=== PATIENT | female | born 2000 | race Caucasian/White ===

== ENCOUNTER 2021-07-17 08:00 | Outpatient (CLI) | payer OTHER ==
[2021-07-17 16:03] LABS: BILIRUBIN,URINE NEGATIVE (NEGATIVE); GLUCOSE, URINE (UA) NEGATIVE (NEGATIVE); KETONES,URINE (UA) NEGATIVE (NEGATIVE); LEUKOCYTE ESTERASE, URINE NEGATIVE (NEGATIVE); NITRITE,URINE NEGATIVE (NEGATIVE); OCCULT BLOOD,URINE MODERATE (NEGATIVE); PH,URINE 7.5 PH (5.0-7.5); PROTEIN,URINE NEGATIVE (NEGATIVE); UROBILINOGEN,URINE 0.2 (NORMAL) E.U./dL (NORMAL)
[2021-07-17 16:08] LABS: CLARITY,URINE HAZY (CLEAR)
[2021-07-17 16:16] LABS: BACTERIA,URINE None Seen /HPF (None Seen); RBC,URINE 0-5 /HPF (0-5); SQUAMOUS EPITHELIAL CELL,UR FEW Squamous (<= Few); WBC,URINE 0-3 /HPF (0-5)
== END 2021-07-17 23:59 ==
LOC: LAB 08:00
PROVIDERS: ATTEND Nurse Practitioner Obstetrics & Gynecology
DX: Z32.01 Encounter for pregnancy test, result positive (principal)
CPT/HCPCS: 81001; 87086

== ENCOUNTER 2021-07-23 08:09 | Emergency (ER) | payer OTHER ==
--- NOTE | 2021-07-23 08:30 | ED Physician Documentation ---
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 She has now developed some pelvic cramping and bleeding. She has gone in with this to see the VETERINARY TECHNOLOGY INSTRUCTOR doctor and had a positive test confirmed. Review of Systems Constitutional: denies: Fever Ears: denies: Ear pain Nose: denies: Congestion Throat: denies: Sore throat Cardiac: denies: Chest pain / pressure Respiratory: denies: Dyspnea, Cough GI: reports: Abdominal Pain. denies: Nausea, Vomiting, Constipation, Diarrhea : reports: Vaginal bleeding. denies: Dysuria, Frequency Skin: denies: Rash Musculoskeletal: denies: Neck pain, Back pain, Extremity pain Neurologic: denies: Generalized weakness, Focal weakness, Numbness PD PAST MEDICAL HISTORY - Present Medications Home Medications: Ambulatory Orders Medication Instructions Recorded Confirmed Pnv No.95/Ferrous Fum/Folic AC 1 each PO DAILY 07/23/21 07/23/21 [ Cap[place]] Sertraline HCl 100 mg PO DAILY 07/23/21 07/23/21 - Allergies Allergies/Adverse Reactions: Allergies Allergy/AdvReac Type Severity Reaction Status Date / Time No Known Drug Allergies Allergy Verified 07/23/21 08:14 PD ED PE NORMAL - Vitals Vital signs reviewed: Yes (normal ) - General General: Alert and oriented X 3, No acute distress, Well developed/nourished - HEENT HEENT: Atraumatic, PERRL, EOMI - Neck Neck: Supple, no meningeal sign, No bony TTP, No bruit - Cardiac Cardiac: RRR, No murmur - Respiratory Respiratory: No respiratory distress, Clear bilaterally - Abdomen Abdomen: Normal bowel sounds, Soft, Non tender, Non distended, No organomegaly - Back Back: No CVA TTP, No spinal TTP - Derm Derm: Normal color, Warm and dry, No rash - Extremities Extremities: No deformity, No edema - Neuro Neuro: Alert and oriented X 3, supervisor benzene refining 2-12 intact, No motor deficit, No sensory deficit, Normal speech Eye Opening: Spontaneous Motor: Obeys Commands Verbal: Oriented GCS Score: 15 - Psych Psych: Normal mood, Normal affect Results - Vitals Vitals: Vital Signs - 24 hr 07/23/21 07/23/21 08:12 10:24 Temperature 36.4 C L 36.9 C Heart Rate 82 76 Respiratory 16 16 Rate Blood Pressure 115/67 126/84 H O2 Saturation 100 100 Oxygen O2 Source Room air - Labs Labs: Laboratory Tests 07/23/21 07/23/21 08:40 08:52 HCG, Quant 360.57 Urine Color YELLOW Urine Clarity CLEAR Urine pH 6.0 Ur Specific [place] 1.020 Urine Protein NEGATIVE Urine Glucose (UA) NEGATIVE Urine Ketones NEGATIVE Urine Occult Blood MODERATE H Urine Nitrite NEGATIVE Urine Bilirubin NEGATIVE Urine Urobilinogen 0.2 (NORMAL) Ur Leukocyte Esterase NEGATIVE Urine RBC None Seen Urine WBC 0-3 Ur Squamous Epith Cells FEW Squamous Urine Bacteria Rare Ur Microscopic Review INDICATED Urine Culture Comments NOT INDICATED - Rads (name of study) u/s Radiology: Prelim report reviewed (Impression: No intrauterine . 15 mm focus of decreased echogenicity within the right ovary too small to definitively characterize. There is no associated vascularity. This could represent a small cyst. However, given positive test, ), Final report received (, ectopic cannot be definitely excluded and short interval imaging follow-up is recommended.), EMP read indepedently, See rad report PD MEDICAL DECISION MAKING - ED course Complexity details: reviewed results, re-evaluated patient, considered differential, d/w patient ED course: 20 y/o female early with spotting and a low hCG has no evidence of intrauterine on formal ultrasound exam. She has been at least 6 wks and the expectation is a higher hCG. I have asked the patient to follow up with [facility] for a repeat hCG in the next 2 days. I have indicated to the patient the likely cause to be miscarriage and I have given her warnings about ectopic. Departure - Departure Disposition: 01 Home, Self Care Clinical Impression: Threatened Condition: Stable Instructions: ED Miscarriage Poss Follow-Up: Emma Yost CNM, HYDRAULIC OIL TOOL OPERATOR [Provider Admit Priv/Credential] - Comments: Praveena, today we did not find any evidence of a in the uterus. Your quantitative hCG was 360.57. This is a low number and we do not expect to see a pole when the number is this low. This number seems low for the amount of time you have been and may represent a failed . The recommendation is to get a second hCG number in the next 2 days. Follow-up with Emma Yost. Discharge Date/Time: 07/23/21 10:25
[2021-07-23 08:52] LABS: BILIRUBIN,URINE NEGATIVE (NEGATIVE); GLUCOSE, URINE (UA) NEGATIVE (NEGATIVE); KETONES,URINE (UA) NEGATIVE (NEGATIVE); LEUKOCYTE ESTERASE, URINE NEGATIVE (NEGATIVE); NITRITE,URINE NEGATIVE (NEGATIVE); OCCULT BLOOD,URINE MODERATE (NEGATIVE); PROTEIN,URINE NEGATIVE (NEGATIVE); UROBILINOGEN,URINE 0.2 (NORMAL) E.U./dL (NORMAL)
[2021-07-23 08:55] LABS: CLARITY,URINE CLEAR (CLEAR)
[2021-07-23 08:59] LABS: RBC,URINE None Seen /HPF (0-5); SQUAMOUS EPITHELIAL CELL,UR FEW Squamous (<= Few); WBC,URINE 0-3 /HPF (0-5)
[2021-07-23 09:00] LABS: BACTERIA,URINE Rare /HPF (None Seen)
[2021-07-23 10:24] VITALS: BP 126/84
--- NOTE | 2021-07-23 11:01 | Ultrasound Report ---
PROCEDURE: OB First Trimester INDICATIONS: cramping bleeding early OUTSIDE/PRIOR DATING DATA: Last menstrual period (LMP): 06/15/2021. LMP-based estimated date of delivery (ERIC): 03/22/2022. First dating scan (date and location): 07/23/2021. Estimated date of delivery (ERIC) from first dating scan: Not applicable. TECHNIQUE: Real-time scanning was performed of the fetus and maternal pelvic organs, with image documentation. COMPARISON: None FINDINGS: There is no visualized intrauterine . There are several small cystic foci identified within the endometrium overall nonspecific. Minimal free fluid in the cul-de-sac is noted. The right ovary demonstrates a focus of decreased echogenicity measuring 15 x 14 x 14 mm. The left ov nidia is unremarkable.. IMPRESSION: No intrauterine . 15 mm focus of decreased echogenicity within the right ovary to small to definitively characterize. T here is no associated vascularity. This could represent a small cyst. However, given positive pregnan cy test, ectopic cannot be definitively excluded and short interval imaging follow-up is re commended. Reviewed by: Aracely Dean MD on 07/23/2021 11:00 AM PST Approved by: Aracely Dean MD on 07/23/2021 11:00 AM PST Station ID: [id number]
== END 2021-07-23 10:25 | disposition home or self-care (01) ==
LOC: ED 08:09
DX: O20.0 Threatened abortion (principal); Z3A.01 Less than 8 weeks gestation of pregnancy
CPT/HCPCS: 36415; 81001; 81003; 84702; 87086; 99283; 99284

== ENCOUNTER 2021-07-26 08:02 | Outpatient (CLI) | payer OTHER | END 2021-07-26 08:03 | disposition home or self-care (01) | LOC: LAB.N 08:02 | PROVIDERS: ATTEND Nurse Practitioner Obstetrics & Gynecology | DX: O20.9 Hemorrhage in early pregnancy, unspecified (principal) | CPT/HCPCS: 36415; 80053; 80061; 83036; 83721; 84443; 84702; 85025; 85651; 86038; 86140 ==

== ENCOUNTER 2021-08-25 12:05 | Outpatient (CLI) | payer OTHER | END 2021-08-25 12:06 | disposition home or self-care (01) | LOC: LAB.N 12:05 | PROVIDERS: ATTEND Nurse Practitioner Obstetrics & Gynecology | DX: O03.9 Complete or unspecified spontaneous abortion without complication (principal) | CPT/HCPCS: 36415; 84702 ==